=== PATIENT | male | born 1995 | race African-American/Black ===

== ENCOUNTER 2023-04-03 14:07 | Outpatient (CLI) | payer MEDICARE, SELFPAY ==
--- NOTE | ~2023-04-03 | XR_ITS ---
EXAMINATION: XR chest 2V 04/03/2023 14:29 INDICATION: Shortness of breath PROCEDURE: 2 view chest COMPARISON: No prior studies for comparison. FINDINGS: The lungs are clear. There is cardiomegaly. There are no pleural effusions. There is no pn eumothorax suspected. IMPRESSION: 1: Cardiomegaly. Reviewed, dictated and finalized at location B. [employer] IMPRESSION: 1: Cardiomegaly.
== END 2023-04-03 14:08 | disposition home or self-care (01) ==
LOC: ANHIMG 14:14
PROVIDERS: PCP Internal Medicine; Visit Provider Internal Medicine Nephrology
DX: N18.6 End stage renal disease (principal); R06.00 Dyspnea, unspecified; I51.7 Cardiomegaly
CPT/HCPCS: 71046